=== PATIENT | male | born 2000 | race Caucasian/White ===

== ENCOUNTER 2023-01-13 12:30 | Emergency (ER) | payer OTHER ==
[~2023-01-13] VITALS: Ht 167.6 cm; Wt 58.1 kg
== END 2023-01-13 19:33 | disposition home or self-care (01) ==
LOC: ER 12:30
DX: S93.492A Sprain of other ligament of left ankle, initial encounter (principal); X58.XXXA Exposure to other specified factors, initial encounter; Y93.67 Activity, basketball; Y92.89 Other specified places as the place of occurrence of the external cause; Y99.8 Other external cause status

== ENCOUNTER 2025-04-11 20:02 | Emergency (ER) | payer OTHER ==
[~2025-04-11] VITALS: Ht 167.6 cm; Wt 59.0 kg
[2025-04-11 20:15] VITALS: BP 123/72; O2SAT 98
[2025-04-11] MEDS ORDERED: CEFTRIAXONE SODIUM 1,000 MG VIAL IM ONE (20:45)
[2025-04-11] MEDS ORDERED: LIDOCAINE HCL 1%/EPINEPHRINE 10 ML VIAL IJ ONE (20:45)
[2025-04-11] MEDS ORDERED: KETOROLAC TROMETHAMINE 60 MG VIAL IM ONE (20:45)
[2025-04-11] MEDS ORDERED: TETANUS & DIPHTHERIA TOX,ADULT 0.5 ML VIAL IM ONE (20:45)
[2025-04-11] MEDS ORDERED: PEPCID AC20 MG PO (21:42)
[2025-04-11] MEDS ORDERED: CEFUROXIME500 MG PO (21:42)
== END 2025-04-11 22:08 | disposition home or self-care (01) ==
LOC: ER 20:02
DX: S61.211A Laceration without foreign body of left index finger without damage to nail, initial encounter (principal); W26.0XXA Contact with knife, initial encounter; Y93.89 Activity, other specified; Y92.89 Other specified places as the place of occurrence of the external cause; Y99.9 Unspecified external cause status